=== PATIENT | female | born 1960 | race Caucasian/White ===

== ENCOUNTER → 2016-10-11 | Outpatient (CLI) | payer OTHER ==
[~2016-10-11] MED LIST: EFFEXOR75 MG PO; ESTRADIOL1 EA10 TD; FLEXERIL10 MG PO; LAMISIL250 MG PO; LEVOTHYROXINE175 MCG PO; MULTIVITAMIN1 EAC2 PO; ULTRAM50 MG PO; ZYRTEC10 M2 PO
== END | disposition home or self-care (01) ==
LOC: EKG 09:58
DX: I51.7 Cardiomegaly (principal); R55 Syncope and collapse
CPT/HCPCS: 93306

== ENCOUNTER → 2017-09-22 | Outpatient (CLI) | payer OTHER ==
[~2017-09-22] VITALS: Ht 162.6 cm; Wt 86.2 kg
[~2017-09-22] MED LIST changes: +ALEVE220 MG PO; +LEVOTHYROXINE200 MC1 PO
== END | disposition home or self-care (01) ==
LOC: AMB 11:49
PROC: 0DBL8ZX Excision of Transverse Colon, Via Natural or Artificial Opening Endoscopic, Diagnostic (ICD-10-PCS; principal; 2017-09-22)
DX: Z12.11 Encounter for screening for malignant neoplasm of colon (principal); K63.5 Polyp of colon; Z86.010 Personal history of colon polyps; F41.9 Anxiety disorder, unspecified; D55.0 Anemia due to glucose-6-phosphate dehydrogenase [G6PD] deficiency; E03.9 Hypothyroidism, unspecified; F17.200 Nicotine dependence, unspecified, uncomplicated
CPT/HCPCS: 88305; J2250